=== PATIENT | female | born 1990 | race Caucasian/White ===

== ENCOUNTER 2017-08-26 23:46 | Emergency (ER) | payer OTHER ==
[~2017-08-26] VITALS: Ht 165.1 cm; Wt 113.4 kg
[~2017-08-26 23:46] MED LIST: AMOXICILLIN500 MG PO; ANUSOL HC,ANUCO25 MG PO; BIRTH CONTROL1 EAC1 PO; BUSPAR5 MG PO; FERROUS SULFAT325 M1 PO; IBU800 M1 PO; PRENTAL 1 PLUS1 TAB PO; PROTONIX20 MG PO; TRAMADOL HCL50 MG PO; ZOFRAN ODT4 MG SL; Zofran4 MG PO
[2017-08-27] MEDS ORDERED: AMOXICILLIN500 M2 PO (02:16)
== END 2017-08-27 02:49 | disposition home or self-care (01) ==
LOC: ED
DX: S81.812A Laceration without foreign body, left lower leg, initial encounter (principal); S81.811A Laceration without foreign body, right lower leg, initial encounter; S91.312A Laceration without foreign body, left foot, initial encounter; Z79.899 Other long term (current) drug therapy; Z88.6 Allergy status to analgesic agent; W25.XXXA Contact with sharp glass, initial encounter; Y93.89 Activity, other specified; Y92.89 Other specified places as the place of occurrence of the external cause; Y99.8 Other external cause status